=== PATIENT | male | born 1965 | race Caucasian/White ===

== ENCOUNTER 2022-02-14 14:48 | Observation (INO) | payer SELFPAY ==
[2022-02-14] MEDS ORDERED: Famotidine/PF 20 mg/2ml Vial ONE (14:57)
[2022-02-14] MEDS ORDERED: EPINEPHrine 1 MG/ML AMP ONE (15:13)
[2022-02-14] MEDS ORDERED: EPINEPHrine 4 MG in Dextrose 5% in Water 250 ML IV SCH (15:30)
[2022-02-14] MEDS ORDERED: Ondansetron PF 4 MG/2 ML Vial ONE (15:36)
[2022-02-14 16:05] LABS: ALT (SGPT) 26 U/L (8-55); AST (SGOT) 25 U/L (5-34); Albumin 3.6 g/dL (3.4-4.8); Alkaline Phosphatase 53 U/L (40-110); Anion Gap 18 mmol/L (10-20); BUN (Urea Nitrogen) 10 mg/dL (8.4-25.7); Bilirubin, Total 0.7 mg/dL (0.2-1.2); Calc. Creatinine Clearance 0 mL/min (70-130); Calcium 8.3 mg/dL (7.8-10.44); Carbon Dioxide 19 mmol/L (23-31); Chloride 98 mmol/L (98-107); Globulin 3.4 g/dL (2.4-3.5); Glucose 270 mg/dL (80-115); Potassium 3.5 mmol/L (3.5-5.1); Sodium 131 mmol/L (136-145)
[2022-02-14 16:25] LABS: MDiff Complete? YES
[2022-02-14 16:35] LABS: Lymphocytes 15 % (21-51)
[2022-02-14 16:41] LABS: Hemoglobin 14.4 g/dL (13.5-17.5); Mean Corpuscular HGB CONC 36.1 g/dL (32.0-36.0); Mean Corpuscular Hemoglobin 37.3 pg (27.0-33.0); Mean Corpuscular Volume 103.4 fl (81.2-95.1); Mean Platelet Volume 10.6 fl (7.4-10.4); Platelet Count 171 10x3/uL (150-450); RBC Distribution Width 12.4 % (11.5-14.5); Red Blood Cell (RBC) Count 3.86 10x6/uL (4.32-5.72)
[2022-02-14 16:44] LABS: Monocytes 3 % (0-10); Neutrophil 81 % (42-75)
[2022-02-14 16:47] LABS: Macrocytosis SLIGHT = 6-15 cells (100X) (0-5/hpf); Platelet Morphology Comment Appears Adequate
[2022-02-14] MEDS ORDERED: Ventolin HFA Inhaler 60 PUFF INHALER INH PRN (17:17)
[2022-02-14] MEDS ORDERED: HumaLOG 300 UNITS/3 ML VIAL SC PRN ×2 (17:19)
[2022-02-14] MEDS ORDERED: Ondansetron PF 4 MG/2 ML Vial IVP PRN (17:19)
[2022-02-14] MEDS ORDERED: Dextrose 5% in Water 1,000 ML IV PRN (17:19)
[2022-02-14] MEDS ORDERED: Acetaminophen 325 MG TAB PO PRN (17:19)
[2022-02-14] MEDS ORDERED: Dextrose 50% Abboject 50 ML SYRINGE SLOW IVP PRN (17:19)
[2022-02-14] MEDS ORDERED: Ondansetron ODT 4 MG TAB PO PRN (17:19)
[2022-02-14] MEDS ORDERED: Nicotine 14 MG PATCH TD PRN (17:19)
[2022-02-14] MEDS ORDERED: diphenhydrAMINE 50 MG/ML VIAL IVP PRN (17:22)
[2022-02-14] MEDS ORDERED: Sodium Chloride 0.9% 1,000 ML IV SCH ×2 (17:30→17:35)
[2022-02-14] MEDS ORDERED: Electrolyte Replacement Protocol FS SCH (17:30)
[2022-02-14] MEDS ORDERED: EPINEPHrine 1 MG/ML AMP IM PRN (17:35)
[2022-02-14] MEDS ORDERED: Famotidine/PF 20 mg/2ml Vial SLOW IVP SCH (21:00)
[2022-02-14] MEDS: methylPREDNISolone Sod Succ/PF 125 MG/2 ML VIAL IVP SCH (21:06)
[2022-02-14] MEDS: Potassium Chloride 20 MEQ in Premix Bag 1 BAG IVPB SCH (22:49)
[2022-02-15] MEDS: Potassium Chloride 20 MEQ in Premix Bag 1 BAG IVPB SCH (00:30)
[2022-02-15 01:06] VITALS: BMI 31.3
[2022-02-15 04:53] LABS: Anion Gap 13 mmol/L (10-20); BUN (Urea Nitrogen) 16 mg/dL (8.4-25.7); Calc. Creatinine Clearance 71 mL/min (70-130); Calcium 7.7 mg/dL (7.8-10.44); Carbon Dioxide 20 mmol/L (22-29); Chloride 100 mmol/L (98-107); Glucose 238 mg/dL (70-105); Magnesium 1.3 mg/dL (1.6-2.6); Potassium 4.4 mmol/L (3.5-5.1); Sodium 129 mmol/L (136-145)
[2022-02-15 06:22] LABS: Hemoglobin 11.2 g/dL (13.5-17.5); Mean Corpuscular HGB CONC 37.1 g/dL (32.0-36.0); Mean Corpuscular Hemoglobin 37.5 pg (27.0-33.0); Mean Platelet Volume 10.2 fl (7.4-10.4); Platelet Count 94 10x3/uL (150-450); RBC Distribution Width 12.5 % (11.5-14.5); Red Blood Cell (RBC) Count 2.99 10x6/uL (4.32-5.72); White Blood Cell (WBC) Count 5.9 10x3/uL (3.5-10.5)
[2022-02-15 06:30] LABS: MDiff Complete? YES
[2022-02-15 06:33] LABS: Band 20 % (5-11); Eosinophils 1 % (0-10); Lymphocytes 12 % (21-51); Monocytes 4 % (0-10); Neutrophil 63 % (42-75)
[2022-02-15 06:34] LABS: Anisocytosis SLIGHT = 6-15 cells (100X) (0-5/hpf); Macrocytosis SLIGHT = 6-15 cells (100X) (0-5/hpf)
[2022-02-15 06:35] LABS: Platelet Morphology Comment Appears Decreased
[2022-02-15] MEDS: methylPREDNISolone Sod Succ/PF 125 MG/2 ML VIAL IVP SCH (06:44)
[2022-02-15] MEDS: Magnesium 2 GM/50 ML(in water) 2 GM in Premix Bag 1 BAG IVPB SCH ×2 (06:44→08:26)
[2022-02-15] MEDS ORDERED: Famotidine 20 MG TAB PO SCH (09:00)
[2022-02-15] MEDS ORDERED: Sodium Chloride 0.9% 1,000 ML IV SCH (10:30)
[2022-02-15 12:33] VITALS: BP 132/60; TEMP 97.8
== END 2022-02-15 15:10 | disposition home or self-care (01) ==
LOC: CSHERS 14:48 → EDBD 17:22 → CSHTELE 17:22
PROVIDERS: ADMIT Hospitalist; ATTEND Hospitalist
DX: T78.2XXA Anaphylactic shock, unspecified, initial encounter (principal); I95.89 Other hypotension; T63.441A Toxic effect of venom of bees, accidental (unintentional), initial encounter; N17.9 Acute kidney failure, unspecified; I10 Essential (primary) hypertension; E11.9 Type 2 diabetes mellitus without complications; F17.210 Nicotine dependence, cigarettes, uncomplicated; Z79.84 Long term (current) use of oral hypoglycemic drugs; Z79.899 Other long term (current) drug therapy
CPT/HCPCS: 36415; 36416; 80048; 80053; 83735; 84484; 85025; 93005; 96375; 96376; G0378; J0171; J1610; J1815; J2405; J2930; J3475; J3480; J7050; J7070; S0028